=== PATIENT | female | born 1995 | race Caucasian/White ===

== ENCOUNTER 2017-02-14 23:40 | Emergency (ER) | payer OTHER ==
[2017-02-15 02:02] VITALS: BP 122/76
== END 2017-02-15 02:02 | disposition home or self-care (01) ==
LOC: ED 23:40
DX: R07.89 Other chest pain (principal); R07.0 Pain in throat; E05.90 Thyrotoxicosis, unspecified without thyrotoxic crisis or storm
CPT/HCPCS: 82962

== ENCOUNTER 2017-08-09 19:56 | Emergency (ER) | payer MEDICAID ==
[~2017-08-09] VITALS: Ht 162.6 cm; Wt 75.3 kg
[2017-08-09 20:38] VITALS: Ht 162.6 cm; Wt 75.3 kg
[2017-08-09 22:10] LABS: BASOPHIL % 0.5 % (0-2)
[2017-08-09 22:17] LABS: PLATELET COUNT 459 x10^3mcL (130-400); RED CELL DISTRIBUTION WIDTH 15.2 % (11.5-14.5)
[2017-08-09 22:31] LABS: CALCIUM 9.3 mg/dL (8.5-10.1); CARBON DIOXIDE 26.8 mmol/L (21-32); CHLORIDE SERUM 102 mmol/L (98-107); CREATININE SERUM 0.6 mg/dL (0.6-1.0); GFR1 > 60 mL/min; GLUCOSE SERUM 94 mg/dL (74-106); SODIUM SERUM 137 mmol/L (136-145)
[2017-08-09 22:36] LABS: ALBUMIN 3.8 g/dL (3.4-5.0); ALKALINE PHOSPHATASE 76 U/L (46-116); ALT/SGPT 22 U/L (14-59); AST/SGOT 13 U/L (15-37); BILIRUBIN TOTAL 0.21 mg/dL (0.20-1.00); LIPASE 250 IU/L (73-393); TOTAL PROTEIN, SERUM 8.2 g/dL (6.4-8.2)
[2017-08-10 00:41] VITALS: BP 118/64
== END 2017-08-10 00:41 | disposition home or self-care (01) ==
LOC: ED 19:56
PROVIDERS: Emergency Medicine
DX: N93.8 Other specified abnormal uterine and vaginal bleeding (principal)
CPT/HCPCS: 36415; Q0092

== ENCOUNTER 2017-11-22 13:57 | Emergency (ER) | payer OTHER ==
[~2017-11-22] VITALS: Ht 162.6 cm; Wt 76.4 kg
[2017-11-22 14:02] VITALS: Ht 162.6 cm; Wt 76.4 kg
[2017-11-22 15:12] LABS: BASOPHIL % 0.6 % (0-2)
[2017-11-22 15:20] LABS: CALCIUM 8.9 mg/dL (8.5-10.1); CARBON DIOXIDE 28.6 mmol/L (21-32); CHLORIDE SERUM 106 mmol/L (98-107); CREATININE SERUM 0.8 mg/dL (0.6-1.0); GFR1 > 60 mL/min; GLUCOSE SERUM 88 mg/dL (74-106); POTASSIUM SERUM 4.6 mmol/L (3.5-5.1); SODIUM SERUM 142 mmol/L (136-145)
[2017-11-22 15:22] LABS: PLATELET COUNT 415 x10^3mcL (130-400)
[2017-11-22 15:24] LABS: ALBUMIN 3.7 g/dL (3.4-5.0); ALKALINE PHOSPHATASE 89 U/L (46-116); ALT/SGPT 19 U/L (14-59); AST/SGOT 12 U/L (15-37); BILIRUBIN TOTAL 0.2 mg/dL (0.20-1.00); CHOLESTEROL 165 mg/dL (<200); CHOLESTEROL/HDL RATIO 3.4; HDL CHOLESTEROL 48 mg/dL (40-60); LIPASE 219 IU/L (73-393); TOTAL PROTEIN, SERUM 7.7 g/dL (6.4-8.2); TRIGLYCERIDES 100 mg/dL (<150)
[2017-11-22 15:38] LABS: T3 TOTAL 1.42 ng/mL
[2017-11-22 17:00] VITALS: BP 102/54
[2017-11-22 17:10] LABS: FREE T4 1.04 ng/dL (0.76-1.46); FREE THYROXINE INDEX 3.2 ug/dL (1.4-4.5)
== END 2017-11-22 17:01 | disposition home or self-care (01) ==
LOC: ED 13:57
PROVIDERS: Specialist
DX: R07.89 Other chest pain (principal)
CPT/HCPCS: 36415; 83880; 84439; Q0092

== ENCOUNTER 2017-12-25 05:58 | Emergency (ER) | payer OTHER ==
[~2017-12-25] VITALS: Ht 162.6 cm; Wt 74.8 kg
[2017-12-25 06:04] VITALS: Ht 162.6 cm; Wt 74.8 kg
[2017-12-25 06:42] LABS: BASOPHIL % 0.1 % (0-2)
[2017-12-25 06:47] LABS: PLATELET COUNT 416 x10^3mcL (130-400); RED CELL DISTRIBUTION WIDTH 14.7 % (11.5-14.5)
[2017-12-25 06:52] LABS: CALCIUM 8.3 mg/dL (8.5-10.1); CARBON DIOXIDE 25.1 mmol/L (21-32); CHLORIDE SERUM 102 mmol/L (98-107); CREATININE SERUM 0.7 mg/dL (0.6-1.0); GFR1 > 60 mL/min; GLUCOSE SERUM 110 mg/dL (74-106); SODIUM SERUM 138 mmol/L (136-145)
[2017-12-25 06:58] LABS: ALKALINE PHOSPHATASE 86 U/L (46-116); ALT/SGPT 14 U/L (14-59); AST/SGOT 14 U/L (15-37); BILIRUBIN TOTAL 0.5 mg/dL (0.20-1.00); LIPASE 249 IU/L (73-393)
[2017-12-25 08:07] VITALS: BP 110/64
== END 2017-12-25 08:07 | disposition home or self-care (01) ==
LOC: ED 05:58
PROVIDERS: Emergency Medicine
DX: K29.70 Gastritis, unspecified, without bleeding (principal)
CPT/HCPCS: 36415; J1885; J2550; Q0092

== ENCOUNTER 2019-10-31 03:35 | Emergency (ER) | payer OTHER ==
[~2019-10-31] VITALS: Ht 167.6 cm; Wt 71.0 kg
[2019-10-31 03:41] VITALS: BP 113/69; Ht 167.6 cm; Wt 71.0 kg
== END 2019-10-31 05:51 | disposition home or self-care (01) ==
LOC: ED 03:35
DX: R07.89 Other chest pain (principal); R00.2 Palpitations
CPT/HCPCS: Q0092